=== PATIENT | male | born 2000 | race Two or more races ===

== ENCOUNTER 2022-07-01 21:07 | Inpatient (IN) | payer MEDICAID, OTHER ==
[~2022-07-01] VITALS: Ht 160 cm; Wt 58.6 kg
[2022-07-01] MEDS ORDERED: ACETAMINOPHEN 325 MG TABLET PO PRN (23:30)
[2022-07-02 00:06] LABS: BASOPHILS % (AUTO) 0.3 % (0.0-2.0); EOSINOPHILS % (AUTO) 1.5 % (1.0-6.0); HEMATOCRIT 43.7 % (41-53); HEMOGLOBIN 14.4 g/dL (13.5-17.5); LYMPHOCYTES # (AUTO) 1.6 K/uL (1.0-4.8); LYMPHOCYTES % (AUTO) 23.9 % (22.0-44.0); MEAN CORPUSCULAR HEMOGLOBIN 28.2 pg (26.0-34.0); MEAN CORPUSCULAR HGB CONC 32.9 G/dL (31.0-37.0); MEAN CORPUSCULAR VOLUME 86 fL (80-100); MONOCYTES # (AUTO) 0.8 K/uL (0.1-1.0); MONOCYTES % (AUTO) 11.5 % (2.0-9.0); NEUTROPHILS # (AUTO) 4.2 K/uL (1.8-7.7); NEUTROPHILS % (AUTO) 62.8 % (40.0-70.0); PLATELET COUNT (AUTO) 277 K/uL (150-450); RED BLOOD CELL COUNT(AUTO) 5.09 MIL/uL (4.50-5.90); RED CELL DISTRIBUTION WIDTH 14.7 % (11.5-14.5)
[2022-07-02 00:18] LABS: ANION GAP 7 mmol/L (8-16); CARBON DIOXIDE 27 mmol/L (22-29); CHLORIDE 102 mmol/L (98-107); CREATININE 0.83 mg/dL (0.60-1.30); GLUCOSE,RANDOM 112 mg/dL (70-110); POTASSIUM 4.1 mmol/L (3.5-5.1); SODIUM SERUM 136 mmol/L (136-145); UREA NITROGEN, BLOOD 9 mg/dL (7-18)
[2022-07-02 00:20] LABS: GLOMERULAR FILTR. RATE CALC > 60 mL/min (>60)
[2022-07-02 00:23] LABS: LACTIC ACID 0.8 mmol/L (0.4-2.0)
[2022-07-02 00:30] LABS: ALANINE AMINOTRANSFERASE 68 U/L (12-78); ALBUMIN 3.9 g/dL (3.4-5.0); ALKALINE PHOSPHATASE 117 U/L (46-116); ASPARTATE AMINOTRANSFERASE 36 U/L (15-37); BILIRUBIN,TOTAL 1.1 mg/dL (0.1-1.0); C-REACTIVE PROTEIN QUANT 0.73 mg/dL (0.00-0.30); LIPASE 139 U/L (73-393)
[2022-07-02 02:57] LABS: COVID AG,FIA SOURCE NASOPHARYNGEAL
[2022-07-02 03:49] VITALS: BP 118/74
[2022-07-02 08:00] VITALS: BP 117/70
[2022-07-02 09:54] LABS: AMPHET/METH SCREEN,URINE NEGATIVE (NEGATIVE); BARBITURATE SCREEN, URINE NEGATIVE (NEGATIVE); BENZODIAZEPINES SCREEN,URINE NEGATIVE (NEGATIVE); CANNABINOID SCREEN,URINE NEGATIVE (NEGATIVE); COCAINE SCREEN,URINE NEGATIVE (NEGATIVE); METHADONE SCREEN, URINE NEGATIVE (NEGATIVE); OPIATE SCREEN,URINE NEGATIVE (NEGATIVE); PHENCYCLIDINE SCREEN,URINE NEGATIVE (NEGATIVE)
[2022-07-02 16:00] VITALS: BP 122/83
[2022-07-02 19:42] VITALS: BP 126/88
[2022-07-03 05:00] VITALS: BP 114/85
[2022-07-03 08:40] VITALS: BP 97/65
[2022-07-03] MEDS ORDERED: BISACODYL 10 MG RECTAL RECTAL SUPPOSITORY PR PRN (09:15)
[2022-07-03] MEDS ORDERED: MAGNESIUM HYDROXIDE SUSPENSION 30 ML UDCUP PO PRN (09:15)
[2022-07-03] MEDS ORDERED: ACETAMINOPHEN 325 MG TABLET PO PRN (09:15)
[2022-07-03] MEDS ORDERED: ZOLPIDEM TARTRATE 5 MG TABLET PO PRN (09:15)
[2022-07-03] MEDS ORDERED: IPRATROPIUM BROMIDE 0.5 MG/2.5 ML NEB SOLUTION NEB PRN (09:15)
[2022-07-03] MEDS ORDERED: ALBUTEROL SULFATE 2.5 MG/0.5 ML NEB SOLUTION NEB PRN (09:15)
[2022-07-03] MEDS ORDERED: ONDANSETRON HCL 4 MG/2 ML VIAL IVP PRN (09:15)
[2022-07-03 15:54] VITALS: BP 99/67
[2022-07-03] MEDS: HEPARIN SODIUM,PORCINE 5,000 UNITS/ML VIAL SQ SCH ×2 (17:59→23:33)
[2022-07-03 19:56] VITALS: BP 102/79
[2022-07-04 04:46] VITALS: BP 126/78
[2022-07-04 08:00] VITALS: BP 88/54
[2022-07-04 08:06] LABS: HIV 1-2 SCREEN 4TH GEN W/RFLX Non Reactive (Non Reactive)
[2022-07-04] MEDS: PANTOPRAZOLE SODIUM 40 MG DR TABLET PO SCH (08:48)
[2022-07-04] MEDS: HEPARIN SODIUM,PORCINE 5,000 UNITS/ML VIAL SQ SCH ×3 (08:49→23:51)
[2022-07-04 16:00] VITALS: BP 116/65
[2022-07-04 19:52] VITALS: BP 108/54
[2022-07-05 04:47] VITALS: BP 105/71
[2022-07-05] MEDS: HEPARIN SODIUM,PORCINE 5,000 UNITS/ML VIAL SQ SCH ×3 (08:00→23:02)
[2022-07-05 08:12] VITALS: BP 101/64
[2022-07-05] MEDS: PANTOPRAZOLE SODIUM 40 MG DR TABLET PO SCH (08:32)
[2022-07-05 15:42] VITALS: BP 101/51
[2022-07-05 19:48] VITALS: BP 125/78
[2022-07-06 04:55] VITALS: BP 114/64
[2022-07-06 06:08] LABS: QUANTIFERON, TB GOLD PLUS Positive (Negative)
[2022-07-06] MEDS: HEPARIN SODIUM,PORCINE 5,000 UNITS/ML VIAL SQ SCH ×3 (08:00→23:06)
[2022-07-06 08:04] VITALS: BP 98/54
[2022-07-06] MEDS: PANTOPRAZOLE SODIUM 40 MG DR TABLET PO SCH (08:24)
[2022-07-06 15:44] VITALS: BP 116/70
[2022-07-06 19:40] VITALS: BP 103/61
[2022-07-07 04:00] VITALS: BP 107/61
[2022-07-07 07:50] VITALS: BP 127/66
[2022-07-07] MEDS: HEPARIN SODIUM,PORCINE 5,000 UNITS/ML VIAL SQ SCH ×3 (08:00→23:26)
[2022-07-07] MEDS: PANTOPRAZOLE SODIUM 40 MG DR TABLET PO SCH (08:41)
[2022-07-07 16:21] VITALS: BP 101/64
[2022-07-07 19:51] VITALS: BP 112/73
[2022-07-07 20:30] VITALS: BP 129/72
[2022-07-08 04:55] VITALS: BP 108/66
[2022-07-08 07:46] VITALS: BP 113/73
[2022-07-08] MEDS: HEPARIN SODIUM,PORCINE 5,000 UNITS/ML VIAL SQ SCH ×3 (08:00→23:24)
[2022-07-08] MEDS: PANTOPRAZOLE SODIUM 40 MG DR TABLET PO SCH (09:48)
[2022-07-08 20:28] VITALS: BP 98/58
[2022-07-09 03:48] VITALS: BP 108/60
[2022-07-09] MEDS: HEPARIN SODIUM,PORCINE 5,000 UNITS/ML VIAL SQ SCH ×2 (08:00→16:03)
[2022-07-09 08:16] VITALS: BP 106/70
[2022-07-09] MEDS: PANTOPRAZOLE SODIUM 40 MG DR TABLET PO SCH (09:14)
[2022-07-09 16:50] VITALS: BP 96/63
[2022-07-09 20:38] VITALS: BP 98/53
[2022-07-10 00:31] VITALS: BP 97/65
[2022-07-10 04:40] VITALS: BP 106/56
[2022-07-10] MEDS: HEPARIN SODIUM,PORCINE 5,000 UNITS/ML VIAL SQ SCH ×3 (08:55→16:38)
[2022-07-10] MEDS: PANTOPRAZOLE SODIUM 40 MG DR TABLET PO SCH (08:55)
[2022-07-10 09:19] VITALS: BP 101/53
[2022-07-10 13:00] VITALS: BP 108/58
[2022-07-10 16:33] VITALS: BP 105/68
[2022-07-10 20:11] VITALS: BP 100/68
[2022-07-11] VITALS (7 sets, daily range): BP systolic 97–117; BP diastolic 60–70
[2022-07-11 06:22] LABS: BASOPHILS % (AUTO) 0.7 % (0.0-2.0); EOSINOPHILS % (AUTO) 2.4 % (1.0-6.0); HEMOGLOBIN 14.4 g/dL (13.5-17.5); LYMPHOCYTES # (AUTO) 2.3 K/uL (1.0-4.8); LYMPHOCYTES % (AUTO) 36.5 % (22.0-44.0); MEAN CORPUSCULAR HEMOGLOBIN 28.8 pg (26.0-34.0); MEAN CORPUSCULAR HGB CONC 33.4 G/dL (31.0-37.0); MEAN CORPUSCULAR VOLUME 86 fL (80-100); MONOCYTES # (AUTO) 0.5 K/uL (0.1-1.0); MONOCYTES % (AUTO) 7.6 % (2.0-9.0); NEUTROPHILS # (AUTO) 3.3 K/uL (1.8-7.7); NEUTROPHILS % (AUTO) 52.8 % (40.0-70.0); PLATELET COUNT (AUTO) 272 K/uL (150-450); RED BLOOD CELL COUNT(AUTO) 4.99 MIL/uL (4.50-5.90); RED CELL DISTRIBUTION WIDTH 13.9 % (11.5-14.5)
[2022-07-11 06:39] LABS: ALANINE AMINOTRANSFERASE 47 U/L (12-78); ALBUMIN 3.6 g/dL (3.4-5.0); ALKALINE PHOSPHATASE 110 U/L (46-116); ANION GAP 6 mmol/L (8-16); ASPARTATE AMINOTRANSFERASE 27 U/L (15-37); CARBON DIOXIDE 29 mmol/L (22-29); CHLORIDE 102 mmol/L (98-107); CREATININE 0.75 mg/dL (0.60-1.30); GLUCOSE,RANDOM 102 mg/dL (70-110); POTASSIUM 3.9 mmol/L (3.5-5.1); SODIUM SERUM 137 mmol/L (136-145); TOTAL PROTEIN, SERUM 7.4 g/dL (6.4-8.2); UREA NITROGEN, BLOOD 11 mg/dL (7-18)
[2022-07-11 06:47] LABS: GLOMERULAR FILTR. RATE CALC > 60 mL/min (>60)
[2022-07-11] MEDS: HEPARIN SODIUM,PORCINE 5,000 UNITS/ML VIAL SQ SCH ×3 (08:00→15:58)
[2022-07-11] MEDS: PANTOPRAZOLE SODIUM 40 MG DR TABLET PO SCH (08:33)
[2022-07-12 05:29] VITALS: BP 101/68
[2022-07-12] MEDS: HEPARIN SODIUM,PORCINE 5,000 UNITS/ML VIAL SQ SCH ×4 (08:00→23:24)
[2022-07-12 08:25] VITALS: BP 94/58
[2022-07-12] MEDS: PANTOPRAZOLE SODIUM 40 MG DR TABLET PO SCH (08:34)
[2022-07-12 11:16] VITALS: BP 91/59
[2022-07-12 15:06] VITALS: BP 93/59
[2022-07-12 20:23] VITALS: BP 103/56
[2022-07-13] VITALS (7 sets, daily range): BP systolic 99–112; BP diastolic 58–68
[2022-07-13] MEDS: HEPARIN SODIUM,PORCINE 5,000 UNITS/ML VIAL SQ SCH ×3 (08:00→16:00)
[2022-07-13] MEDS: PANTOPRAZOLE SODIUM 40 MG DR TABLET PO SCH (08:36)
[2022-07-14 04:34] VITALS: BP 95/50
[2022-07-14 08:00] VITALS: BP 111/75
[2022-07-14] MEDS: HEPARIN SODIUM,PORCINE 5,000 UNITS/ML VIAL SQ SCH ×3 (08:00→16:00)
[2022-07-14] MEDS: PANTOPRAZOLE SODIUM 40 MG DR TABLET PO SCH (09:13)
[2022-07-14 11:22] VITALS: BP 100/67
[2022-07-14 15:36] VITALS: BP 97/62
[2022-07-14 20:15] VITALS: BP 96/84
[2022-07-15 00:23] VITALS: BP 93/65
[2022-07-15 04:23] VITALS: BP 95/51
[2022-07-15 08:00] VITALS: BP 100/73
[2022-07-15] MEDS: HEPARIN SODIUM,PORCINE 5,000 UNITS/ML VIAL SQ SCH ×4 (08:00→23:07)
[2022-07-15] MEDS: PANTOPRAZOLE SODIUM 40 MG DR TABLET PO SCH (08:29)
[2022-07-15 11:44] VITALS: BP 99/62
[2022-07-15 16:13] VITALS: BP 95/53
[2022-07-15 21:25] VITALS: BP 92/58
[2022-07-16] VITALS: BP 93/58
[2022-07-16 05:34] VITALS: BP 100/63
[2022-07-16 06:40] LABS: ALANINE AMINOTRANSFERASE 50 U/L (12-78); ALBUMIN 3.6 g/dL (3.4-5.0); ALKALINE PHOSPHATASE 122 U/L (46-116); ANION GAP 9 mmol/L (8-16); ASPARTATE AMINOTRANSFERASE 30 U/L (15-37); BILIRUBIN,TOTAL 0.7 mg/dL (0.1-1.0); CALCIUM, TOTAL 9.2 mg/dL (8.8-10.5); CARBON DIOXIDE 29 mmol/L (22-29); CHLORIDE 103 mmol/L (98-107); CREATININE 0.79 mg/dL (0.60-1.30); GLUCOSE,RANDOM 100 mg/dL (70-110); PHOSPHORUS 4.7 mg/dL (2.5-4.9); SODIUM SERUM 141 mmol/L (136-145); TOTAL PROTEIN, SERUM 7.6 g/dL (6.4-8.2); UREA NITROGEN, BLOOD 12 mg/dL (7-18)
[2022-07-16 06:44] LABS: GLOMERULAR FILTR. RATE CALC > 60 mL/min (>60)
[2022-07-16 08:00] VITALS: BP 97/71
[2022-07-16] MEDS: HEPARIN SODIUM,PORCINE 5,000 UNITS/ML VIAL SQ SCH ×2 (08:00→16:00)
[2022-07-16] MEDS: PANTOPRAZOLE SODIUM 40 MG DR TABLET PO SCH (08:12)
[2022-07-16 12:00] VITALS: BP 98/55
[2022-07-16 16:15] VITALS: BP 92/58
[2022-07-16 19:56] VITALS: BP 97/63
[2022-07-17] VITALS (7 sets, daily range): BP systolic 97–103; BP diastolic 48–64
[2022-07-17] MEDS: HEPARIN SODIUM,PORCINE 5,000 UNITS/ML VIAL SQ SCH ×3 (08:00→16:00)
[2022-07-17] MEDS: PANTOPRAZOLE SODIUM 40 MG DR TABLET PO SCH (08:30)
[2022-07-18 03:35] VITALS: BP 98/68
[2022-07-18] MEDS: HEPARIN SODIUM,PORCINE 5,000 UNITS/ML VIAL SQ SCH ×4 (08:00→23:36)
[2022-07-18 08:05] VITALS: BP 94/63
[2022-07-18] MEDS: PANTOPRAZOLE SODIUM 40 MG DR TABLET PO SCH (08:17)
[2022-07-18 11:54] VITALS: BP 106/66
[2022-07-18 18:07] VITALS: BP 95/67
[2022-07-18 19:25] VITALS: BP 96/58
[2022-07-18 23:52] VITALS: BP 95/61
[2022-07-19 04:51] VITALS: BP 97/56
[2022-07-19] MEDS: HEPARIN SODIUM,PORCINE 5,000 UNITS/ML VIAL SQ SCH ×3 (08:00→23:50)
[2022-07-19 08:32] VITALS: BP 98/61
[2022-07-19] MEDS: PANTOPRAZOLE SODIUM 40 MG DR TABLET PO SCH ×2 (09:17→09:25)
[2022-07-19 12:11] VITALS: BP 96/66
[2022-07-19 16:48] VITALS: BP 95/57
[2022-07-19 19:17] VITALS: BP 95/56
[2022-07-19 23:36] VITALS: BP 100/69
[2022-07-20 04:04] VITALS: BP 106/64
[2022-07-20] MEDS: HEPARIN SODIUM,PORCINE 5,000 UNITS/ML VIAL SQ SCH ×3 (07:48→23:36)
[2022-07-20 08:05] VITALS: BP 103/69
[2022-07-20 16:46] VITALS: BP 111/72
[2022-07-20 20:32] VITALS: BP 98/60
[2022-07-21 05:22] VITALS: BP 104/56
[2022-07-21] MEDS: HEPARIN SODIUM,PORCINE 5,000 UNITS/ML VIAL SQ SCH ×2 (08:00→16:00)
[2022-07-21 08:01] VITALS: BP 127/53
[2022-07-21] MEDS: PANTOPRAZOLE SODIUM 40 MG DR TABLET PO SCH (08:39)
[2022-07-21 15:28] VITALS: BP 102/67
[2022-07-21 19:43] VITALS: BP 111/66
[2022-07-22 03:45] VITALS: BP 107/59
[2022-07-22] MEDS: PANTOPRAZOLE SODIUM 40 MG DR TABLET PO SCH (07:46)
[2022-07-22] MEDS: HEPARIN SODIUM,PORCINE 5,000 UNITS/ML VIAL SQ SCH ×4 (07:47→23:54)
[2022-07-22 08:04] VITALS: BP 125/58
[2022-07-22 15:18] VITALS: BP 109/69
[2022-07-22 20:29] VITALS: BP 99/58
[2022-07-23 04:57] VITALS: BP 99/66
[2022-07-23 07:00] LABS: BASOPHILS % (AUTO) 0.3 % (0.0-2.0); EOSINOPHILS % (AUTO) 2.3 % (1.0-6.0); HEMATOCRIT 42.8 % (41-53); HEMOGLOBIN 14.4 g/dL (13.5-17.5); LYMPHOCYTES # (AUTO) 2.3 K/uL (1.0-4.8); LYMPHOCYTES % (AUTO) 36.5 % (22.0-44.0); MEAN CORPUSCULAR HEMOGLOBIN 28.6 pg (26.0-34.0); MEAN CORPUSCULAR HGB CONC 33.7 G/dL (31.0-37.0); MEAN CORPUSCULAR VOLUME 85 fL (80-100); MONOCYTES # (AUTO) 0.4 K/uL (0.1-1.0); MONOCYTES % (AUTO) 6.7 % (2.0-9.0); NEUTROPHILS # (AUTO) 3.5 K/uL (1.8-7.7); NEUTROPHILS % (AUTO) 54.2 % (40.0-70.0); PLATELET COUNT (AUTO) 265 K/uL (150-450); RED BLOOD CELL COUNT(AUTO) 5.03 MIL/uL (4.50-5.90); RED CELL DISTRIBUTION WIDTH 13.6 % (11.5-14.5)
[2022-07-23 07:13] LABS: ALANINE AMINOTRANSFERASE 60 U/L (12-78); ALBUMIN 3.6 g/dL (3.4-5.0); ALKALINE PHOSPHATASE 104 U/L (46-116); ANION GAP 10 mmol/L (8-16); ASPARTATE AMINOTRANSFERASE 30 U/L (15-37); CALCIUM, TOTAL 9.2 mg/dL (8.8-10.5); CARBON DIOXIDE 27 mmol/L (22-29); CHLORIDE 103 mmol/L (98-107); CREATININE 0.73 mg/dL (0.60-1.30); GLUCOSE,RANDOM 91 mg/dL (70-110); POTASSIUM 4.2 mmol/L (3.5-5.1); SODIUM SERUM 140 mmol/L (136-145); TOTAL PROTEIN, SERUM 7.8 g/dL (6.4-8.2); UREA NITROGEN, BLOOD 13 mg/dL (7-18)
[2022-07-23 07:15] LABS: GLOMERULAR FILTR. RATE CALC > 60 mL/min (>60)
[2022-07-23 08:00] VITALS: BP 105/53
[2022-07-23] MEDS: HEPARIN SODIUM,PORCINE 5,000 UNITS/ML VIAL SQ SCH ×2 (08:00→16:00)
[2022-07-23] MEDS: PANTOPRAZOLE SODIUM 40 MG DR TABLET PO SCH (08:36)
[2022-07-23 16:00] VITALS: BP 133/78
[2022-07-23 20:02] VITALS: BP 100/62
[2022-07-24 04:48] VITALS: BP 109/56
[2022-07-24 07:47] VITALS: BP 110/58
[2022-07-24] MEDS: HEPARIN SODIUM,PORCINE 5,000 UNITS/ML VIAL SQ SCH ×4 (08:00→23:16)
[2022-07-24] MEDS: PANTOPRAZOLE SODIUM 40 MG DR TABLET PO SCH (08:07)
[2022-07-24 15:40] VITALS: BP 114/64
[2022-07-24 19:33] VITALS: BP 106/73
[2022-07-25 05:20] VITALS: BP 108/51
[2022-07-25] MEDS: PANTOPRAZOLE SODIUM 40 MG DR TABLET PO SCH (07:36)
[2022-07-25] MEDS: HEPARIN SODIUM,PORCINE 5,000 UNITS/ML VIAL SQ SCH ×3 (07:37→23:39)
[2022-07-25 08:10] VITALS: BP 105/64
[2022-07-25 19:50] VITALS: BP 102/57
[2022-07-26 04:25] VITALS: BP 93/58
[2022-07-26 07:45] VITALS: BP 97/63
[2022-07-26] MEDS: HEPARIN SODIUM,PORCINE 5,000 UNITS/ML VIAL SQ SCH ×3 (08:00→23:59)
[2022-07-26] MEDS: PANTOPRAZOLE SODIUM 40 MG DR TABLET PO SCH (08:58)
[2022-07-26 15:27] VITALS: BP 104/62
[2022-07-26 19:25] VITALS: BP 99/57
[2022-07-27 05:17] VITALS: BP 126/67
[2022-07-27 07:32] VITALS: BP 116/61
[2022-07-27] MEDS: HEPARIN SODIUM,PORCINE 5,000 UNITS/ML VIAL SQ SCH ×2 (08:00→16:00)
[2022-07-27] MEDS: PANTOPRAZOLE SODIUM 40 MG DR TABLET PO SCH (08:23)
[2022-07-27 15:22] VITALS: BP 110/64
[2022-07-27 20:10] VITALS: BP 106/67
[2022-07-28 05:20] VITALS: BP 103/57
[2022-07-28] MEDS: HEPARIN SODIUM,PORCINE 5,000 UNITS/ML VIAL SQ SCH ×3 (08:00→15:44)
[2022-07-28 08:18] VITALS: BP 103/53
[2022-07-28] MEDS: PANTOPRAZOLE SODIUM 40 MG DR TABLET PO SCH (11:46)
[2022-07-28 16:10] VITALS: BP 107/70
[2022-07-28 20:03] VITALS: BP 107/69
[2022-07-29 05:04] VITALS: BP 105/70
[2022-07-29] MEDS: HEPARIN SODIUM,PORCINE 5,000 UNITS/ML VIAL SQ SCH ×3 (08:00→15:21)
[2022-07-29 08:17] VITALS: BP 94/53
[2022-07-29] MEDS: PANTOPRAZOLE SODIUM 40 MG DR TABLET PO SCH (08:53)
[2022-07-29 15:42] VITALS: BP 102/69
[2022-07-29 20:35] VITALS: BP 98/59
[2022-07-30] MEDS ORDERED: 0.9% SODIUM CHLORIDE 5 ML NEB SOLUTION NEB ONE (04:14)
[2022-07-30] MEDS ORDERED: SODIUM CHLORIDE 3% 15 ML NEB SOLUTION NEB ONE (04:14)
[2022-07-30 04:34] VITALS: BP 114/73
[2022-07-30 07:35] VITALS: BP 102/49
[2022-07-30] MEDS: HEPARIN SODIUM,PORCINE 5,000 UNITS/ML VIAL SQ SCH ×4 (08:00→23:32)
[2022-07-30] MEDS: PANTOPRAZOLE SODIUM 40 MG DR TABLET PO SCH (08:30)
[2022-07-30 16:46] VITALS: BP 102/58
[2022-07-30 19:53] VITALS: BP 118/70
[2022-07-31 04:48] VITALS: BP 110/59
[2022-07-31 07:56] VITALS: BP 97/59
[2022-07-31] MEDS: HEPARIN SODIUM,PORCINE 5,000 UNITS/ML VIAL SQ SCH ×3 (08:00→23:33)
[2022-07-31] MEDS: PANTOPRAZOLE SODIUM 40 MG DR TABLET PO SCH (08:10)
[2022-07-31] MEDS ORDERED: LINEZOLID 600 MG TABLET PO SCH (12:00)
[2022-07-31] MEDS: [UNRECOGNIZED DRUG - OTHER] PO SCH (14:45)
[2022-07-31] MEDS: PYRIDOXINE HCL 50 MG TABLET PO SCH (14:45)
[2022-07-31] MEDS: BEDAQUILINE FUMARATE 100 MG TABLET PO SCH (14:46)
[2022-07-31 16:08] VITALS: BP 108/68
[2022-07-31] MEDS: LINEZOLID 600 MG TABLET PO SCH (17:43)
[2022-07-31 19:30] VITALS: BP 98/62
[2022-08-01 03:43] VITALS: BP 97/51
[2022-08-01 05:52] LABS: BASOPHILS % (AUTO) 0.2 % (0.0-2.0); EOSINOPHILS % (AUTO) 2.3 % (1.0-6.0); HEMATOCRIT 42.1 % (41-53); HEMOGLOBIN 14.2 g/dL (13.5-17.5); LYMPHOCYTES # (AUTO) 2.3 K/uL (1.0-4.8); LYMPHOCYTES % (AUTO) 34.1 % (22.0-44.0); MEAN CORPUSCULAR HEMOGLOBIN 28.9 pg (26.0-34.0); MEAN CORPUSCULAR HGB CONC 33.7 G/dL (31.0-37.0); MEAN CORPUSCULAR VOLUME 86 fL (80-100); MONOCYTES # (AUTO) 0.5 K/uL (0.1-1.0); MONOCYTES % (AUTO) 7.7 % (2.0-9.0); NEUTROPHILS # (AUTO) 3.7 K/uL (1.8-7.7); NEUTROPHILS % (AUTO) 55.7 % (40.0-70.0); PLATELET COUNT (AUTO) 251 K/uL (150-450); RED CELL DISTRIBUTION WIDTH 13.4 % (11.5-14.5)
[2022-08-01 06:06] LABS: ALANINE AMINOTRANSFERASE 42 U/L (12-78); ALBUMIN 3.6 g/dL (3.4-5.0); ALKALINE PHOSPHATASE 102 U/L (46-116); ANION GAP 8 mmol/L (8-16); ASPARTATE AMINOTRANSFERASE 24 U/L (15-37); BILIRUBIN,TOTAL 1.2 mg/dL (0.1-1.0); CALCIUM, TOTAL 9.2 mg/dL (8.8-10.5); CARBON DIOXIDE 29 mmol/L (22-29); CHLORIDE 102 mmol/L (98-107); CREATININE 0.83 mg/dL (0.60-1.30); GLUCOSE,RANDOM 98 mg/dL (70-110); PHOSPHORUS 4.5 mg/dL (2.5-4.9); POTASSIUM 4.3 mmol/L (3.5-5.1); SODIUM SERUM 139 mmol/L (136-145); TOTAL PROTEIN, SERUM 7.6 g/dL (6.4-8.2); UREA NITROGEN, BLOOD 12 mg/dL (7-18)
[2022-08-01 06:08] LABS: GLOMERULAR FILTR. RATE CALC > 60 mL/min (>60)
[2022-08-01] MEDS: LINEZOLID 600 MG TABLET PO SCH (09:21)
[2022-08-01] MEDS: [UNRECOGNIZED DRUG - OTHER] PO SCH (09:21)
[2022-08-01] MEDS: BEDAQUILINE FUMARATE 100 MG TABLET PO SCH (09:21)
[2022-08-01] MEDS: PANTOPRAZOLE SODIUM 40 MG DR TABLET PO SCH (09:22)
[2022-08-01] MEDS: HEPARIN SODIUM,PORCINE 5,000 UNITS/ML VIAL SQ SCH ×2 (09:22→16:00)
[2022-08-01] MEDS: PYRIDOXINE HCL 50 MG TABLET PO SCH (09:22)
[2022-08-01 09:41] VITALS: BP 107/62
[2022-08-01 16:45] VITALS: BP 107/70
[2022-08-01 19:40] VITALS: BP 110/63
[2022-08-02 04:05] VITALS: BP 98/48
[2022-08-02 07:07] LABS: ALBUMIN 3.7 g/dL (3.4-5.0); BILIRUBIN,DIRECT 0.2 mg/dL (0.00-0.20)
[2022-08-02 07:54] VITALS: BP 100/61
[2022-08-02] MEDS: HEPARIN SODIUM,PORCINE 5,000 UNITS/ML VIAL SQ SCH ×5 (08:00→23:53)
[2022-08-02] MEDS: PANTOPRAZOLE SODIUM 40 MG DR TABLET PO SCH (08:34)
[2022-08-02] MEDS: PYRIDOXINE HCL 50 MG TABLET PO SCH (08:34)
[2022-08-02] MEDS: LINEZOLID 600 MG TABLET PO SCH (08:34)
[2022-08-02] MEDS: BEDAQUILINE FUMARATE 100 MG TABLET PO SCH (08:35)
[2022-08-02] MEDS: [UNRECOGNIZED DRUG - OTHER] PO SCH (08:35)
[2022-08-02 16:06] VITALS: BP 104/64
[2022-08-02 20:35] VITALS: BP 100/53
[2022-08-03 05:21] VITALS: BP 103/62
[2022-08-03 07:56] VITALS: BP 106/68
[2022-08-03] MEDS: HEPARIN SODIUM,PORCINE 5,000 UNITS/ML VIAL SQ SCH ×2 (08:00→16:00)
[2022-08-03] MEDS: PANTOPRAZOLE SODIUM 40 MG DR TABLET PO SCH (09:15)
[2022-08-03] MEDS: PYRIDOXINE HCL 50 MG TABLET PO SCH (09:15)
[2022-08-03] MEDS: LINEZOLID 600 MG TABLET PO SCH (09:16)
[2022-08-03] MEDS: BEDAQUILINE FUMARATE 100 MG TABLET PO SCH (09:16)
[2022-08-03] MEDS: [UNRECOGNIZED DRUG - OTHER] PO SCH (09:16)
[2022-08-03 15:22] VITALS: BP 110/74
[2022-08-03 20:29] VITALS: BP 101/68
[2022-08-04 05:17] VITALS: BP 107/76
[2022-08-04 07:53] VITALS: BP 113/61
[2022-08-04] MEDS: PANTOPRAZOLE SODIUM 40 MG DR TABLET PO SCH (09:48)
[2022-08-04] MEDS: PYRIDOXINE HCL 50 MG TABLET PO SCH (09:49)
[2022-08-04] MEDS: HEPARIN SODIUM,PORCINE 5,000 UNITS/ML VIAL SQ SCH ×3 (09:49→15:26)
[2022-08-04] MEDS: [UNRECOGNIZED DRUG - OTHER] PO SCH (09:50)
[2022-08-04] MEDS: BEDAQUILINE FUMARATE 100 MG TABLET PO SCH (09:50)
[2022-08-04] MEDS: LINEZOLID 600 MG TABLET PO SCH (09:50)
[2022-08-04 15:30] VITALS: BP 95/67
[2022-08-04 19:54] VITALS: BP 100/64
[2022-08-05 05:12] VITALS: BP 120/55
[2022-08-05 07:58] VITALS: BP 101/51
[2022-08-05] MEDS: HEPARIN SODIUM,PORCINE 5,000 UNITS/ML VIAL SQ SCH ×3 (08:00→23:22)
[2022-08-05] MEDS: PANTOPRAZOLE SODIUM 40 MG DR TABLET PO SCH (09:13)
[2022-08-05] MEDS: PYRIDOXINE HCL 50 MG TABLET PO SCH (09:13)
[2022-08-05] MEDS: [UNRECOGNIZED DRUG - OTHER] PO SCH (09:14)
[2022-08-05] MEDS: LINEZOLID 600 MG TABLET PO SCH (09:14)
[2022-08-05] MEDS: BEDAQUILINE FUMARATE 100 MG TABLET PO SCH (09:21)
[2022-08-05 19:58] VITALS: BP 109/62
[2022-08-06 05:09] VITALS: BP 100/58
[2022-08-06] MEDS: PANTOPRAZOLE SODIUM 40 MG DR TABLET PO SCH (07:43)
[2022-08-06] MEDS: HEPARIN SODIUM,PORCINE 5,000 UNITS/ML VIAL SQ SCH ×3 (07:46→23:11)
[2022-08-06 08:07] VITALS: BP 115/66
[2022-08-06] MEDS: PYRIDOXINE HCL 50 MG TABLET PO SCH (09:17)
[2022-08-06] MEDS: BEDAQUILINE FUMARATE 100 MG TABLET PO SCH (09:18)
[2022-08-06] MEDS: LINEZOLID 600 MG TABLET PO SCH (09:19)
[2022-08-06] MEDS: [UNRECOGNIZED DRUG - OTHER] PO SCH (09:19)
[2022-08-06 14:00] VITALS: BP 104/56
[2022-08-06 20:20] VITALS: BP 99/64
[2022-08-07 04:30] VITALS: BP 102/61
[2022-08-07 06:42] LABS: BASOPHILS % (AUTO) 0.4 % (0.0-2.0); EOSINOPHILS % (AUTO) 2.7 % (1.0-6.0); HEMATOCRIT 43.9 % (41-53); HEMOGLOBIN 14.7 g/dL (13.5-17.5); LYMPHOCYTES # (AUTO) 2.5 K/uL (1.0-4.8); LYMPHOCYTES % (AUTO) 36.5 % (22.0-44.0); MEAN CORPUSCULAR HEMOGLOBIN 28.7 pg (26.0-34.0); MEAN CORPUSCULAR HGB CONC 33.5 G/dL (31.0-37.0); MEAN CORPUSCULAR VOLUME 86 fL (80-100); MONOCYTES # (AUTO) 0.5 K/uL (0.1-1.0); MONOCYTES % (AUTO) 7.8 % (2.0-9.0); NEUTROPHILS # (AUTO) 3.5 K/uL (1.8-7.7); NEUTROPHILS % (AUTO) 52.6 % (40.0-70.0); PLATELET COUNT (AUTO) 247 K/uL (150-450); RED BLOOD CELL COUNT(AUTO) 5.13 MIL/uL (4.50-5.90); RED CELL DISTRIBUTION WIDTH 13.5 % (11.5-14.5)
[2022-08-07 06:58] LABS: ALANINE AMINOTRANSFERASE 48 U/L (12-78); ALBUMIN 4.1 g/dL (3.4-5.0); ALKALINE PHOSPHATASE 102 U/L (46-116); ANION GAP 7 mmol/L (8-16); ASPARTATE AMINOTRANSFERASE 29 U/L (15-37); BILIRUBIN,TOTAL 1.1 mg/dL (0.1-1.0); CALCIUM, TOTAL 9.3 mg/dL (8.8-10.5); CARBON DIOXIDE 29 mmol/L (22-29); CHLORIDE 102 mmol/L (98-107); CREATININE 0.91 mg/dL (0.60-1.30); GLUCOSE,RANDOM 102 mg/dL (70-110); PHOSPHORUS 4.6 mg/dL (2.5-4.9); POTASSIUM 4.3 mmol/L (3.5-5.1); SODIUM SERUM 138 mmol/L (136-145); TOTAL PROTEIN, SERUM 8.2 g/dL (6.4-8.2); UREA NITROGEN, BLOOD 13 mg/dL (7-18)
[2022-08-07 07:16] LABS: GLOMERULAR FILTR. RATE CALC > 60 mL/min (>60)
[2022-08-07] MEDS: HEPARIN SODIUM,PORCINE 5,000 UNITS/ML VIAL SQ SCH ×3 (08:00→16:00)
[2022-08-07 08:24] VITALS: BP 94/66
[2022-08-07] MEDS: [UNRECOGNIZED DRUG - OTHER] PO SCH (09:45)
[2022-08-07] MEDS: BEDAQUILINE FUMARATE 100 MG TABLET PO SCH (09:46)
[2022-08-07] MEDS: PANTOPRAZOLE SODIUM 40 MG DR TABLET PO SCH (09:46)
[2022-08-07] MEDS: PYRIDOXINE HCL 50 MG TABLET PO SCH (09:46)
[2022-08-07] MEDS: LINEZOLID 600 MG TABLET PO SCH (09:46)
[2022-08-07 16:30] VITALS: BP 100/67
[2022-08-07 20:00] VITALS: BP 100/59
[2022-08-08 04:28] VITALS: BP 101/43
[2022-08-08] MEDS: HEPARIN SODIUM,PORCINE 5,000 UNITS/ML VIAL SQ SCH ×3 (08:00→15:33)
[2022-08-08 08:07] VITALS: BP 104/53
[2022-08-08] MEDS: PYRIDOXINE HCL 50 MG TABLET PO SCH (09:15)
[2022-08-08] MEDS: PANTOPRAZOLE SODIUM 40 MG DR TABLET PO SCH (09:15)
[2022-08-08] MEDS: BEDAQUILINE FUMARATE 100 MG TABLET PO SCH (09:16)
[2022-08-08] MEDS: [UNRECOGNIZED DRUG - OTHER] PO SCH (09:16)
[2022-08-08] MEDS: LINEZOLID 600 MG TABLET PO SCH (09:17)
[2022-08-08 15:21] VITALS: BP 100/58
[2022-08-08 20:11] VITALS: BP 118/62
[2022-08-09 05:10] VITALS: BP 103/52
[2022-08-09 08:00] VITALS: BP 117/68
[2022-08-09] MEDS: HEPARIN SODIUM,PORCINE 5,000 UNITS/ML VIAL SQ SCH ×3 (08:00→15:16)
[2022-08-09] MEDS: LINEZOLID 600 MG TABLET PO SCH (09:39)
[2022-08-09] MEDS: PANTOPRAZOLE SODIUM 40 MG DR TABLET PO SCH (09:39)
[2022-08-09] MEDS: BEDAQUILINE FUMARATE 100 MG TABLET PO SCH (09:39)
[2022-08-09] MEDS: PYRIDOXINE HCL 50 MG TABLET PO SCH (09:39)
[2022-08-09] MEDS: [UNRECOGNIZED DRUG - OTHER] PO SCH (09:39)
[2022-08-09 16:07] VITALS: BP 106/79
[2022-08-09 20:05] VITALS: BP 105/68
[2022-08-10 04:35] VITALS: BP 111/60
[2022-08-10 07:51] VITALS: BP 114/73
[2022-08-10] MEDS: HEPARIN SODIUM,PORCINE 5,000 UNITS/ML VIAL SQ SCH ×5 (08:00→23:10)
[2022-08-10] MEDS: LINEZOLID 600 MG TABLET PO SCH (09:37)
[2022-08-10] MEDS: PYRIDOXINE HCL 50 MG TABLET PO SCH (09:37)
[2022-08-10] MEDS: PANTOPRAZOLE SODIUM 40 MG DR TABLET PO SCH (09:37)
[2022-08-10] MEDS: [UNRECOGNIZED DRUG - OTHER] PO SCH (09:37)
[2022-08-10] MEDS: BEDAQUILINE FUMARATE 100 MG TABLET PO SCH (09:38)
[2022-08-10 16:06] VITALS: BP 102/56
[2022-08-10 19:33] VITALS: BP 98/66
[2022-08-11 04:11] VITALS: BP 100/59
[2022-08-11 08:00] VITALS: BP 104/63
[2022-08-11] MEDS: HEPARIN SODIUM,PORCINE 5,000 UNITS/ML VIAL SQ SCH ×3 (09:13→23:31)
[2022-08-11] MEDS: PYRIDOXINE HCL 50 MG TABLET PO SCH (09:13)
[2022-08-11] MEDS: PANTOPRAZOLE SODIUM 40 MG DR TABLET PO SCH (09:13)
[2022-08-11] MEDS: LINEZOLID 600 MG TABLET PO SCH (09:13)
[2022-08-11] MEDS: [UNRECOGNIZED DRUG - OTHER] PO SCH (09:13)
[2022-08-11] MEDS: BEDAQUILINE FUMARATE 100 MG TABLET PO SCH (09:14)
[2022-08-11 16:00] VITALS: BP 101/69
[2022-08-11 20:22] VITALS: BP 104/59
[2022-08-12 04:59] VITALS: BP 101/54
[2022-08-12 07:24] VITALS: BP 105/57
[2022-08-12] MEDS: HEPARIN SODIUM,PORCINE 5,000 UNITS/ML VIAL SQ SCH ×3 (08:00→23:44)
[2022-08-12] MEDS: PANTOPRAZOLE SODIUM 40 MG DR TABLET PO SCH (09:43)
[2022-08-12] MEDS: LINEZOLID 600 MG TABLET PO SCH (09:43)
[2022-08-12] MEDS: [UNRECOGNIZED DRUG - OTHER] PO SCH (09:43)
[2022-08-12] MEDS: BEDAQUILINE FUMARATE 100 MG TABLET PO SCH (09:43)
[2022-08-12] MEDS: PYRIDOXINE HCL 50 MG TABLET PO SCH (09:43)
[2022-08-12 09:47] VITALS: BP 114/75
[2022-08-12 15:50] VITALS: BP 102/74
[2022-08-12 19:40] VITALS: BP 99/55
[2022-08-13 05:20] VITALS: BP 98/67
[2022-08-13 06:55] LABS: BASOPHILS % (AUTO) 0.6 % (0.0-2.0); EOSINOPHILS % (AUTO) 2.5 % (1.0-6.0); HEMATOCRIT 44.6 % (41-53); LYMPHOCYTES # (AUTO) 2.1 K/uL (1.0-4.8); LYMPHOCYTES % (AUTO) 33.6 % (22.0-44.0); MEAN CORPUSCULAR HEMOGLOBIN 28.8 pg (26.0-34.0); MEAN CORPUSCULAR HGB CONC 33.6 G/dL (31.0-37.0); MEAN CORPUSCULAR VOLUME 86 fL (80-100); MONOCYTES # (AUTO) 0.5 K/uL (0.1-1.0); MONOCYTES % (AUTO) 8.5 % (2.0-9.0); NEUTROPHILS # (AUTO) 3.4 K/uL (1.8-7.7); NEUTROPHILS % (AUTO) 54.8 % (40.0-70.0); PLATELET COUNT (AUTO) 235 K/uL (150-450); RED BLOOD CELL COUNT(AUTO) 5.21 MIL/uL (4.50-5.90); RED CELL DISTRIBUTION WIDTH 13.5 % (11.5-14.5)
[2022-08-13 07:12] LABS: ALANINE AMINOTRANSFERASE 58 U/L (12-78); ALKALINE PHOSPHATASE 94 U/L (46-116); ANION GAP 9 mmol/L (8-16); ASPARTATE AMINOTRANSFERASE 33 U/L (15-37); BILIRUBIN,TOTAL 1.3 mg/dL (0.1-1.0); CALCIUM, TOTAL 9.1 mg/dL (8.8-10.5); CARBON DIOXIDE 26 mmol/L (22-29); CHLORIDE 103 mmol/L (98-107); CREATININE 0.75 mg/dL (0.60-1.30); GLOMERULAR FILTR. RATE CALC > 60 mL/min (>60); GLUCOSE,RANDOM 98 mg/dL (70-110); POTASSIUM 3.8 mmol/L (3.5-5.1); SODIUM SERUM 138 mmol/L (136-145); TOTAL PROTEIN, SERUM 8.1 g/dL (6.4-8.2); UREA NITROGEN, BLOOD 16 mg/dL (7-18)
[2022-08-13 07:59] VITALS: BP 117/53
[2022-08-13] MEDS: PYRIDOXINE HCL 50 MG TABLET PO SCH (09:20)
[2022-08-13] MEDS: PANTOPRAZOLE SODIUM 40 MG DR TABLET PO SCH (09:20)
[2022-08-13] MEDS: HEPARIN SODIUM,PORCINE 5,000 UNITS/ML VIAL SQ SCH ×2 (09:20→15:27)
[2022-08-13] MEDS: LINEZOLID 600 MG TABLET PO SCH (09:20)
[2022-08-13] MEDS: [UNRECOGNIZED DRUG - OTHER] PO SCH (09:20)
[2022-08-13] MEDS: BEDAQUILINE FUMARATE 100 MG TABLET PO SCH (09:21)
[2022-08-13 15:32] VITALS: BP 116/52
[2022-08-13 20:08] VITALS: BP 95/53
[2022-08-14 05:32] VITALS: BP 111/63
[2022-08-14 06:42] LABS: ALBUMIN 3.9 g/dL (3.4-5.0); BILIRUBIN,DIRECT 0.2 mg/dL (0.00-0.20); PHOSPHORUS 4.5 mg/dL (2.5-4.9); TOTAL PROTEIN, SERUM 7.8 g/dL (6.4-8.2)
[2022-08-14] MEDS: HEPARIN SODIUM,PORCINE 5,000 UNITS/ML VIAL SQ SCH ×3 (08:00→16:00)
[2022-08-14 08:26] VITALS: BP 104/66
[2022-08-14] MEDS: [UNRECOGNIZED DRUG - OTHER] PO SCH (09:30)
[2022-08-14] MEDS: LINEZOLID 600 MG TABLET PO SCH (09:30)
[2022-08-14] MEDS: PANTOPRAZOLE SODIUM 40 MG DR TABLET PO SCH (09:30)
[2022-08-14] MEDS: PYRIDOXINE HCL 50 MG TABLET PO SCH (09:32)
[2022-08-14 16:26] VITALS: BP 105/75
[2022-08-14 20:21] VITALS: BP 92/65
[2022-08-15 04:01] VITALS: BP 117/59
[2022-08-15] MEDS: HEPARIN SODIUM,PORCINE 5,000 UNITS/ML VIAL SQ SCH ×3 (08:00→16:00)
[2022-08-15 08:38] VITALS: BP 105/69
[2022-08-15] MEDS ORDERED: BEDAQUILINE FUMARATE 100 MG TABLET PO SCH (09:00)
[2022-08-15] MEDS: PANTOPRAZOLE SODIUM 40 MG DR TABLET PO SCH (09:04)
[2022-08-15] MEDS: LINEZOLID 600 MG TABLET PO SCH (09:05)
[2022-08-15] MEDS: PYRIDOXINE HCL 50 MG TABLET PO SCH (09:05)
[2022-08-15] MEDS: [UNRECOGNIZED DRUG - OTHER] PO SCH (09:05)
[2022-08-15 16:32] VITALS: BP 99/60
[2022-08-15 20:58] VITALS: BP 109/68
[2022-08-16] MEDS ORDERED: [UNRECOGNIZED DRUG - OTHER] PO SCH
[2022-08-16] MEDS ORDERED: PYRIDOXINE HCL 50 MG TABLET PO SCH
[2022-08-16] MEDS ORDERED: LINEZOLID 600 MG TABLET PO SCH
[2022-08-16 05:03] VITALS: BP 110/66
[2022-08-16 07:50] VITALS: BP 110/57
[2022-08-16] MEDS: HEPARIN SODIUM,PORCINE 5,000 UNITS/ML VIAL SQ SCH ×3 (08:00→09:01)
[2022-08-16] MEDS: PANTOPRAZOLE SODIUM 40 MG DR TABLET PO SCH (09:01)
[2022-08-16] MEDS: PYRIDOXINE HCL 50 MG TABLET PO SCH (09:01)
[2022-08-16] MEDS: LINEZOLID 600 MG TABLET PO SCH (09:15)
[2022-08-16] MEDS: [UNRECOGNIZED DRUG - OTHER] PO SCH (09:16)
[2022-08-16] MEDS ORDERED: [UNRECOGNIZED DRUG - CODE] PO (10:34)
[2022-08-16] MEDS ORDERED: [UNRECOGNIZED DRUG - CODE] PO (10:36)
[2022-08-16] MEDS ORDERED: LINE600T14 PO (10:37)
[2022-08-16] MEDS ORDERED: PYRI100T10 PO (10:38)
== END 2022-08-16 15:41 | disposition home or self-care (01) | DRG 179 ==
LOC: EMS 21:09 → 6S 07-02 02:14 → 6N 07-07 00:27 → 5N 07-09 15:10 → 6S 07-20 10:58
PROVIDERS: ADMIT Hospitalist; ATTEND Internal Medicine
DX: A15.0 Tuberculosis of lung (principal); R91.8 Other nonspecific abnormal finding of lung field; Z20.822 Contact with and (suspected) exposure to COVID-19
CPT/HCPCS: 71047; 71250; 80053; 80076; 80299; 83605; 83690; 83735; 84100; 85025; 86140; 86480; 87015; 87040; 87081; 87116; 87206; 87389; 87556; 93005; 94640; 99285; J1644; Q9967; 36415-L1; 36415-TC